=== PATIENT | male | born 1970 | race Caucasian/White ===

== ENCOUNTER 2018-11-29 13:29 | Emergency (ER) | payer MEDICAID ==
[~2018-11-29] VITALS: Ht 170.2 cm; Wt 79.0 kg
[2018-11-29] MEDS ORDERED: LORAZEPAM 2MG/ML CPJ IM STA (14:13)
[2018-11-29] MEDS ORDERED: HALOPERIDOL LACTATE 5MG/ML VIAL IM STA (14:13)
[2018-11-29 15:30] LABS: HEMATOCRIT. 42.6 % (42.0-52.0); HEMOGLOBIN. 14.5 g/dL (14.0-18.0); MEAN CORPUSCULAR HEMOGLOBIN 28.4 pg (28.0-32.0); MEAN CORPUSCULAR VOLUME 83.1 fL (80.0-94.0); MEAN PLATELET VOLUME 7.7 fl (7.4-10.4); PLATELET 288 x1000/uL (130-400); RED BLOOD CELL COUNT 5.13 mill/uL (4.7-6.1); RED CELL DISTRIBUTION WIDTH 13.1 % (11.6-14.6)
[2018-11-29 15:34] LABS: CHLORIDE 106 mEq/L (98-107)
[2018-11-29 15:38] LABS: ETHANOL BLOOD < 10 mg/dL
[2018-11-29 15:50] LABS: PLATELET ESTIMATE NORMAL
[2018-11-29] MEDS ORDERED: POTASSIUM CHLORIDE 20MEQ TABLET SR PO ONE (18:15)
[2018-11-29 19:12] LABS: CLARITY URINE CLOUDY (CLEAR); COLOR URINE YELLOW (YELLOW); KETONES URINE TRACE (NEGATIVE); LEUKOCYTE ESTERASE URINE NEGATIVE (NEGATIVE); NITRITE URINE POSITIVE (NEGATIVE); OCCULT BLOOD URINE NEGATIVE (NEGATIVE); PH URINE 5.5 (4.5-8.0); PROTEIN URINE NEGATIVE (NEGATIVE); SPECIFIC GRAVITY URINE 1.016 (1.005-1.030); UROBILINOGEN URINE 0.2 E.U./dL (0.2-1.0)
[2018-11-29 19:40] LABS: *AMPHETAMINES SCREEN URINE PRESUMTIVE POSITIVE (NEGATIVE)
[2018-11-29 20:03] LABS: CANNABINOID URINE SCREEN NEGATIVE (NEGATIVE)
[2018-11-29 20:04] LABS: *BARBITURATES SCREEN URINE NEGATIVE (NEGATIVE); *BENZODIAZEPINES SCREEN URINE NEGATIVE (NEGATIVE); *COCAINE SCREEN URINE NEGATIVE (NEGATIVE); OPIATES URINE SCREEN NEGATIVE (NEGATIVE); PHENCYCLIDINE URINE SCREEN NEGATIVE (NEGATIVE)
[2018-11-29 20:05] LABS: METHADONE URINE SCREEN NEGATIVE (NEGATIVE)
[2018-11-29] MEDS ORDERED: AMOXICILLIN 500 MG CAPSULE PO ONE (20:30)
[2018-11-30 16:30] VITALS: BP 139/81
== END 2018-11-30 16:55 ==
LOC: ER 13:48
DX: R45.851 Suicidal ideations (principal); E87.6 Hypokalemia; F43.10 Post-traumatic stress disorder, unspecified
CPT/HCPCS: 36415; 80053; 80305; 80307; 80329; 81003; 85025; 96372; 99285; J1630; J2060